=== PATIENT | male | born 1950 | race Caucasian/White ===

== ENCOUNTER 2020-09-10 17:54 | Emergency (ER) | payer MEDICARE, BC ==
[2020-09-10] MEDS ORDERED: Bacitracin Oint 1 GM U/D Packet TOP ONE (18:32)
[2020-09-10] MEDS ORDERED: Lidocaine 1% with EPINEPHrine 1:100,000 50 ML MDV INFILT STA (18:32)
--- NOTE | 2020-09-10 18:52 | EDM.PDOC ---
ED HPI GENERAL MEDICAL PROBLEM - General Chief Complaint: Laceration Stated Complaint: CUT ON LIP Time Seen by Provider: 09/10/20 18:29 Source of Information: Reports: Patient History Limitations: Reports: No Limitations - History of Present Illness INITIAL COMMENTS - FREE TEXT/NARRATIVE: Fran is a 70-year-old male presenting to the ED for evaluation of a laceration to his left upper lip. Patient was using a drill at about face level and the drill bit caught a bur causing the drill to spin with the handle striking him in the upper lip causing the laceration from the pressure between the drill handle and his teeth. He did not suffer any dental injury, however, he does have a significant 1.3 cm laceration to the upper lip which is likely through and through. Patient believes that he is up-to-date on his tetanus having received one in the last 3 years at [facility]. He denies any other injury. - Related Data Allergies Allergy/AdvReac Type Severity Reaction Status Date / Time No Known Allergies Allergy Verified 09/10/20 18:24 Home Meds: Home Meds Aspirin [Halfprin] 81 mg PO DAILY 09/10/20 [History] Fluticasone Propionate [Flovent Diskus] 100 mcg IH BID 09/10/20 [History] Indomethacin [Indocin] 25 mg PO BID PRN 09/10/20 [History] Tamsulosin [Flomax] 1 tab PO DAILY 09/10/20 [History] atorvaSTATin Calcium [Lipitor] 10 mg PO DAILY 09/10/20 [History] lisinopriL [Lisinopril] 10 mg PO DAILY 09/10/20 [History] Past Medical History HEENT History: Reports: Impaired Vision Cardiovascular History: Reports: High Cholesterol, Hypertension Respiratory History: Reports: Asthma Gastrointestinal History: Reports: None Musculoskeletal History: Reports: Arthritis, Gout - Past Surgical History Head Surgeries/Procedures: Reports: None HEENT Surgical History: Reports: Tonsillectomy Cardiovascular Surgical History: Reports: None Respiratory Surgical History: Reports: None GI Surgical History: Reports: Cholecystectomy Musculoskeletal Surgical History: Reports: None Dermatological Surgical History: Reports: None Social & Family History - Caffeine Use Caffeine Use: Reports: None ED ROS GENERAL - Review of Systems Review Of Systems: See Below Constitutional: Reports: No Symptoms HEENT: Reports: Other (Laceration left upper lip) Respiratory: Reports: No Symptoms Cardiovascular: Reports: No Symptoms Musculoskeletal: Reports: No Symptoms ED EXAM, SKIN/RASH Exam: See Below Exam Limited By: No Limitations General Appearance: Alert, No Apparent Distress Eye Exam: Bilateral Eye: EOMI, PERRL Nose: Normal Inspection Throat/Mouth: Normal Teeth, Normal Gums, Normal Oropharynx, Normal Voice, No Airway Compromise, Other (1.3 cm laceration left upper lip. This is a through and through laceration. It does not cross the vermilion border but does come in close proximity to it.) Head: Facial Swelling (Left upper lip around the area of the laceration) Neck: Normal Inspection Respiratory/Chest: No Respiratory Distress ED SKIN PROCEDURES - Laceration/Wound Repair Upper Mouth Appearance: Subcutaneous Distal NVT: Neuro & Vascular Intact Anesthetic Type: Local Local Anesthesia - Lidocaine (Xylocaine): 1% with EPI Local Anesthetic Volume: 2cc Exploration/Debridement/Repair: Wound Explored, In a Bloodless Field, Explored to Base (Fortunately the laceration does not go through the muscle layer which would require an internal closure.) Closed with: Sutures Lac/Wound length In cm: 1.3 Suture Size: 5-0 # of Sutures: 4 Suture Type: Nylon, Interrupted Sterile Dressing Applied: Provider Tetanus Status Addressed: Yes Complications: No Course - Vital Signs Last Recorded V/S: Last Vital Signs Temp 36.6 C 09/10/20 18:27 Pulse 79 09/10/20 18:27 Resp 16 09/10/20 18:27 BP 145/97 H 09/10/20 18:27 Pulse Ox 98 09/10/20 18:27 - Orders/Labs/Meds Meds: Medications Discontinued Medications Generic Name Dose Route Start Last Admin Trade Name Antionette PRN Reason Stop Dose Admin Bacitracin 1 dose 09/10/20 18:32 09/10/20 18:44 Bacitracin Oint 1 Gm U/D Packet TOP 09/10/20 18:33 1 dose ONETIME ONE Administration Lidocaine/Epinephrine 2 ml 09/10/20 18:32 09/10/20 18:44 Lidocaine 1% With Epinephrine 1:100,000 50 Ml Mdv INFILT 09/10/20 18:33 2 ml ONETIME STA Administration - Re-Assessments/Exams Free Text/Narrative Re-Assessment/Exam: 09/10/20 18:58 patient sustained a laceration to the upper lip that does not cross the vermilion border. The laceration is 1.3 cm. Fortunately does not go through the muscle layer although he does have a internal laceration as well as an external laceration on the lip. The external segment was closed using 5-0 Ethilon requiring 4 simple interrupted sutures with good coaptation of the wound edges. Bleeding is now controlled. A light coating of bacitracin was applied over the lip laceration. The patient was instructed on care of the laceration. You will have to have the sutures removed in 5 days. Indications return to the ED were discussed and he was discharged in satisfactory condition. Departure - Departure Time of Disposition: 18:54 Disposition: Home, Self-Care 01 Clinical Impression: Laceration of lip Qualifiers: Encounter type: initial encounter Qualified Code(s): S01.511A - Laceration without foreign body of lip, initial encounter - Discharge Information Instructions: Mouth Laceration, [id number] Referrals: PCP,None [Primary Care Provider] - Forms: ED Department Discharge Care Plan Goals: Is apply a light coating of bacitracin to the wound twice daily for the next 5 days. The sutures will need to be removed in 5 days. You may apply ice to the area to reduce swelling. Try not to lick the sutures. We did not close a laceration on the inside of the lip because that will usually close very quickly on its own. Fortunately we avoided laceration of the muscle layer so internal closure was not needed. Sepsis Event Note (ED) - Evaluation Sepsis Screening Result: No Definite Risk - Focused Exam Vital Signs: Vital Signs Temp Pulse Resp BP Pulse Ox 09/10/20 18:27 36.6 C 79 16 145/97 H 98 09/10/20 18:22 36.6 C 79 16 145/97 H 98 - Problem List & Annotations (1) Laceration of lip SNOMED Code(s): 581690759 Code(s): S01.511A - LACERATION WITHOUT FOREIGN BODY OF LIP, INITIAL ENCOUNTER Status: Acute Priority: Medium Current Visit: Yes Qualifiers: Encounter type: initial encounter Qualified Code(s): S01.511A - Laceration without foreign body of lip, initial encounter - Problem List Review Problem List Initiated/Reviewed/Updated: Yes
== END 2020-09-10 19:05 | disposition home or self-care (01) ==
LOC: JP.ED 17:54
DX: S01.511A Laceration without foreign body of lip, initial encounter (principal); E78.00 Pure hypercholesterolemia, unspecified; I10 Essential (primary) hypertension; Z79.82 Long term (current) use of aspirin; Z79.899 Other long term (current) drug therapy; W29.8XXA Contact with other powered hand tools and household machinery, initial encounter
CPT/HCPCS: 12011; 99282-25

== ENCOUNTER 2022-12-04 10:04 | Emergency (ER) | payer MEDICARE, BC ==
[2022-12-04] MEDS ORDERED: Lidocaine 2% 5 ML SDV INJECT ONE (10:51)
[2022-12-04] MEDS ORDERED: Amoxicillin/Clavulanate K 875-125 MG Tab PO ONE (10:52)
[2022-12-04] MEDS ORDERED: Lidocaine 1% 5 ML VIAL INJECT ONE (10:53)
[2022-12-04] MEDS ORDERED: Bupivacaine 0.5% 30 ML SDV INFILT ONE (10:53)
[2022-12-04] MEDS ORDERED: Diphtheria/Tetanus Toxoids,Adult (Td) 0.5 ML SDV IM ONE (12:20)
[2022-12-04] MEDS ORDERED: Bacitracin Oint 1 GM U/D Packet TOP ONE (12:21)
== END 2022-12-04 12:50 | disposition home or self-care (01) ==
LOC: JP.ED 10:04
DX: S91.111A Laceration without foreign body of right great toe without damage to nail, initial encounter (principal); M35.3 Polymyalgia rheumatica; E78.00 Pure hypercholesterolemia, unspecified; I10 Essential (primary) hypertension; J45.909 Unspecified asthma, uncomplicated; Z23 Encounter for immunization; Z79.899 Other long term (current) drug therapy; W11.XXXA Fall on and from ladder, initial encounter
CPT/HCPCS: 12002; 90471; 90714; 99282; A9270